=== PATIENT | male | born 1995 | race Caucasian/White ===

== ENCOUNTER 2020-05-30 19:20 | Emergency (ER) | payer MEDICAID ==
[~2020-05-30] VITALS: Ht 172.7 cm; Wt 69.0 kg
[2020-05-30 19:27] VITALS: BP 133/72
[2020-05-30] MEDS ORDERED: CEFTRIAXONE SODIUM 500 MG/VIAL IM ONE (20:00)
== END 2020-05-30 20:59 | disposition home or self-care (01) ==
LOC: ER 19:20
DX: A54.9 Gonococcal infection, unspecified (principal); Z98.890 Other specified postprocedural states
CPT/HCPCS: 96372; 99283; J0696

== ENCOUNTER 2021-10-15 04:40 | Emergency (ER) | payer MEDICAID ==
[~2021-10-15] VITALS: Ht 170.2 cm; Wt 70.5 kg
[2021-10-15] MEDS ORDERED: IBUPROFEN 600MG TABLET PO ONE (08:45)
[2021-10-15] MEDS ORDERED: PENI500T MT (11:28)
[2021-10-15] MEDS ORDERED: IBUP-2029 MT (11:28)
[2021-10-15 12:06] VITALS: BP 126/75
== END 2021-10-15 12:10 | disposition home or self-care (01) ==
LOC: ER 04:40
DX: J02.0 Streptococcal pharyngitis (principal); Z98.890 Other specified postprocedural states
CPT/HCPCS: 87430; 99283